=== PATIENT | female | born 1950 | race Caucasian/White ===

== ENCOUNTER → 2018-08-04 | Outpatient (CLI) | payer OTHER, MEDICARE ==
[~2018-08-04] MED LIST: BYSTOLIC10 MG PO; LISINOPRIL-HCT1 EACH PO
--- NOTE | 2018-08-04 17:04 | Diagnostic Imaging Report ---
CT CHEST WITHOUT CONTRAST HISTORY: Shortness of breath, right lower lobe pulmonary nodule COMPARISON: Images from chest radiograph June 23, 2015. TECHNIQUE: CT scan of the chest WITHOUT intravenous contrast, using standard protocol. The chest was scanned utilizing a multidetector helical scanner from the apex to the level of the adrenal glands. Coronal and sagittal reformats are provided. IV CONTRAST: None, which limits evaluation of the vascular structures, mediastinum and soft tissues. RADIATION DOSE: Total DLP: 623.49 mGy*cm Dose modulation, iterative reconstruction, and/or weight based adjustment of the mA/kV was utilized to reduce the radiation dose to as low as reasonably achievable. COMPLICATIONS: None FINDINGS: Lines/tubes: None. Lungs and Airways: Bibasilar atelectasis versus scarring. Two densely calcified right middle lobe granulomas, 7 mm and 4 mm in diameter. No airspace consolidation or edema. Pleura: The pleural spaces are clear. Heart and mediastinum: The thyroid gland is normal. The heart is within normal size limits. Dense calcification of the tricuspid valve greater than the aortic valve. Trace pericardial fluid. Abdomen: Limited nonenhanced views of the upper abdomen. Metallic clips in the right upper quadrant of the abdomen are compatible with prior cholecystectomy. Lymph nodes: No pathologically enlarged lymph node identified. Vessels: Scattered atherosclerotic vascular calcifications, including the coronary arteries. Bones: Accentuation of the thoracic kyphosis. Multilevel mild to moderate degenerative disc changes. Soft tissues: Otherwise, unremarkable. IMPRESSION: 1. Two right middle lobe calcified granulomas, surveillance follow-up is not required. 2. Coronary atherosclerosis. Signed by: Dr. Néstor Mancilla D.O., M.M.M. on 08/04/2018 5:00 PM
== END ==
LOC: CT 16:01
PROVIDERS: ATTEND Family Medicine
DX: R06.02 Shortness of breath (principal); R91.1 Solitary pulmonary nodule
CPT/HCPCS: 71250

== ENCOUNTER → 2018-08-29 | Day surgery (SDC) | payer OTHER, MEDICARE ==
[2018-08-26 17:45] LABS: BASOPHILS # (AUTO) 0.1 (0.0-0.1); BASOPHILS % 0.6 % (0.0-1.0); EOSINOPHILS # (AUTO) 0.2 (0.0-0.4); EOSINOPHILS % 2.3 % (0.0-6.0); HEMOGLOBIN 13.6 g/dL (12.0-16.0); LYMPHOCYTES # (AUTO) 2.6 (1.0-3.2); LYMPHOCYTES % 31.5 % (18.0-39.1); MEAN CORPUSCULAR HEMOGLOBIN 27.5 pg (28-32); MEAN CORPUSCULAR HGB CONC 32.4 g/dL (31-35); MONOCYTES # (AUTO) 0.8 (0.2-0.8); MONOCYTES % 8.9 % (4.4-11.3); NEUTROPHILS # (AUTO) 4.7 (2.1-6.9); NEUTROPHILS % 56.2 % (38.7-80.0); PLATELET COUNT 248 x10e3/uL (140-360); RED BLOOD COUNT 4.94 x10e6/uL (3.6-5.1); RED CELL DISTRIBUTION WIDTH 14.9 % (11.7-14.4)
[~2018-08-29] MED LIST changes: +CRESTOR5 MG PO; +FENTANYL CITRATE/PF 100MCG/2 ML INJ ONE; +MIDAZOLAM HCL 2 MG/2 ML VIAL ONE; +PANTOPRAZOLE 40 MG 10ML VIAL ONE; +PROPOFOL IV EMULSION 10 MG/ML 20 ML VIAL ONE
--- NOTE | 2018-08-29 18:16 | Operative Report ---
DATE OF PROCEDURE: August 29, 2018 REFERRING PHYSICIAN: Dr. Ernestina Medina. PROCEDURES PERFORMED 1. Esophagogastroduodenoscopy with biopsies. 2. Colonoscopy with polypectomy and biopsies. INDICATIONS FOR ESOPHAGOGASTRODUODENOSCOPY: Heartburn and indigestion. INDICATIONS FOR COLONOSCOPY: History of colon polyps, surveillance colonoscopy. MEDICATION: Patient was done under MAC. Please see anesthesiologist's note. PROCEDURE: With patient in left lateral decubitus position, a flexible fiberoptic Olympus gastroscope was introduced into the esophagus under direct visualization without any difficulty. Some erosions were noted in the distal esophagus. There was a single tongue of velvety-red mucosa extending proximally from the GE junction that was biopsied to rule out Suresh's. The scope was then advanced with ease into the stomach traversing a small hiatal hernia. Mucosa overlying the antrum and the body revealed some patchy intense erythema and moderate edema and biopsies were obtained and sent to stain for H. pylori. Pylorus was of normal contour and shape. It was intubated with ease and the scope was advanced all the way to the second portion of the duodenum. The biopsies were obtained from the proximal second portion to rule out sprue. The scope was then withdrawn back into the stomach and retroflexed and mucosa overlying the fundus and the cardia appeared to be within normal limits. The scope was then straightened out. It was subsequently withdrawn. Patient tolerated the procedure well. IMPRESSION 1. Distal erosive esophagitis. 2. Rule out Suresh's esophagus. 3. Small hiatal hernia. 4. Gastritis, biopsied. Biopsies sent to stain for Helicobacter pylori. 5. Rule out sprue. PLAN: Follow up histology. Initiate Protonix 40 mg 1 p.o. q.a a.m. a.c. Patient was then turned around. After adequate lubrication of the anal canal, a flexible fiberoptic Olympus colonoscope was inserted into the rectum with ease and advanced all the way to the cecum. It was then withdrawn slowly. Mucosa overlying the cecum and ascending colon appeared to be within normal limits. One polyp was hot biopsied from the distal transverse colon. The mucosa overlying the left colon revealed some patchy intense erythema and moderate edema and similar findings were also noted in the rectum. Random biopsies were obtained. The scope was then retroflexed into the distal rectum and small internal hemorrhoids were noted, none of which was actively bleeding. The scope was then straightened out and was subsequently withdrawn. Patient tolerated the procedure well. IMPRESSION 1. Transverse colon polyp, hot biopsied. 2. Patchy mild left-sided colitis. 3. Proctitis, mild. 4. Small internal hemorrhoids. none actively bleeding. PLAN: Follow up histology. Initiate VSL #3 one p.o. daily. Check TSH. Patient might benefit from a followup colonoscopy in 3 to 5 years. Job#: [id number] VAS cc:DR. ERNESTINA MEDINA
--- OUTSIDE RECORDS SUMMARY | 2018-09-01 14:19 | XMS REPORT ---
Author [facility] Address Unknown Phone Unavailable Care Team Providers Care Supervisor Policy Change Clerks Name Role Phone TUCKER MEDINA Unavailable Unavailable Problems This patient has no known problems. Allergies, Adverse Reactions, Alerts This patient has no known allergies or adverse reactions. Medications This patient has no known medications. Results Test Description Test Time Test Comments Text Results Atomic Results Result Comments CT CHEST WO 2018-08-04 16:51:00 [place] [address] Patient Name: LUÍS CIFUETNES MR #: [id number] : 1950 Age/Sex: 68/F Req #: [id number] Adm Physician: Ordered by: TUCKER MEDINA DO Report #: [id number] Location: CT Room/Bed: Procedure: [id number] CT/CT CHEST WO Exam Date: Exam Time: REPORT STATUS: Signed CT CHEST WITHOUT CONTRAST HISTORY: Shortness of breath, right lower lobe pulmonary nodule COMPARISON: Images from chest radiograph June 23, 2015. TECHNIQUE: CT scan of the chest WITHOUT intravenous contrast, using standard protocol. The chest was scanned utilizing a multidetector helical scanner from the apex to the level of the adrenal glands. Coronal and sagittal reformats are provided. IV CONTRAST: None, which limits evaluation of the vascular structures, mediastinum and soft tissues. RADIATION DOSE: Total DLP: 623.49 mGy*cm Dose modulation, iterative reconstruction, and/or weight based adjustment of the mA/kV was utilized to reduce the radiation dose to as low as reasonably achievable. COMPLICATIONS: None FINDINGS: Lines/tubes: None. Lungs and Airways: Bibasilar atelectasis versus scarring. Two densely calcified right middle lobe granulomas, 7 mm and 4 mm in diameter. No airspace consolidation or edema. Pleura: The pleural spaces are clear. Heart and mediastinum: The thyroid gland is normal. The heart is within normal size limits. Dense calcification of the tricuspid valve greater than the aortic valve. Trace pericardial fluid. Abdomen: Limited nonenhanced views of the upper abdomen. Metallic clips in the right upper quadrant of the abdomen are compatible with prior cholecystectomy. Lymph nodes: No patho logically enlarged lymph node identified. Vessels: Scattered atherosclerotic vascular calcifications, including the coronary arteries. Bones: Accentuation of the thoracic kyphosis. Multilevel mild to moderate degenerative disc changes. Soft tissues: Otherwise, unremarkable. IMPRESSION: 1. Two right middle lobe calcified granulomas, surveillance follow-up is not required. 2. Coronary atherosclerosis. Signed by: Dr. Fela Mancilla DCocoOCoco, M.M.M. on 08/04/2018 5:00 PM Dictated By: FELA MANCILLA DO 99 Transcribe d By: KEAGAN on 08/04/181699 COPY TO: TUCKER MEDINA DO
== END | disposition home or self-care (01) ==
LOC: OR 12:15
PROVIDERS: ATTEND Internal Medicine Gastroenterology
DX: K29.70 Gastritis, unspecified, without bleeding (principal); K63.5 Polyp of colon; K22.10 Ulcer of esophagus without bleeding; K51.50 Left sided colitis without complications; K44.9 Diaphragmatic hernia without obstruction or gangrene; K22.8 Other specified diseases of esophagus; K62.89 Other specified diseases of anus and rectum; K59.00 Constipation, unspecified; K64.8 Other hemorrhoids; I10 Essential (primary) hypertension; G47.33 Obstructive sleep apnea (adult) (pediatric); E78.00 Pure hypercholesterolemia, unspecified; Z01.810 Encounter for preprocedural cardiovascular examination; Z88.6 Allergy status to analgesic agent; Z88.0 Allergy status to penicillin; Z68.37 Body mass index [BMI] 37.0-37.9, adult; Z90.49 Acquired absence of other specified parts of digestive tract; Z96.653 Presence of artificial knee joint, bilateral; Z80.0 Family history of malignant neoplasm of digestive organs
CPT/HCPCS: 36415; 43239; 45380; 45384; 85025; 93005; J2250

== ENCOUNTER 2021-01-25 07:26 | Observation (INO) | payer OTHER, MEDICARE ==
[~2021-01-25] VITALS: Ht 167.6 cm; Wt 101.2 kg
[~2021-01-25 07:26] MED LIST changes: -FENTANYL CITRATE/PF 100MCG/2 ML INJ ONE; -MIDAZOLAM HCL 2 MG/2 ML VIAL ONE; -PANTOPRAZOLE 40 MG 10ML VIAL ONE; -PROPOFOL IV EMULSION 10 MG/ML 20 ML VIAL ONE
[2021-01-25] MEDS ORDERED: ASPIRIN 81 MG CHEW TAB PO ONE ×3 (07:30→09:00)
[2021-01-25 07:55] LABS: BASOPHILS # (AUTO) 0.1 (0.0-0.1); EOSINOPHILS # (AUTO) 0.2 (0.0-0.4); EOSINOPHILS % 3.8 % (0.0-6.0); HEMATOCRIT 40.9 % (34.2-44.1); LYMPHOCYTES # (AUTO) 1.7 (1.0-3.2); LYMPHOCYTES % 34.1 % (18.0-39.1); MEAN CORPUSCULAR HEMOGLOBIN 26.3 pg (28-32); MEAN CORPUSCULAR HGB CONC 31.8 g/dL (31-35); MEAN CORPUSCULAR VOLUME 82.6 fL (81-99); MONOCYTES # (AUTO) 0.5 (0.2-0.8); MONOCYTES % 8.9 % (4.4-11.3); NEUTROPHILS # (AUTO) 2.6 (2.1-6.9); PLATELET COUNT 246 x10e3/uL (140-360); RED BLOOD COUNT 4.95 x10e6/uL (3.6-5.1); RED CELL DISTRIBUTION WIDTH 15.1 % (11.7-14.4)
[2021-01-25] MEDS ORDERED: HYDRALAZINE HCL 20 MG/ML VIAL ONE (07:57)
[2021-01-25] MEDS ORDERED: NITROGLYCERIN 2% OINT 1 GM PKT TOP ONE (08:00)
[2021-01-25 08:10] LABS: COLOR,URINE YELLOW (YELLOW)
[2021-01-25 08:11] LABS: CLARITY,URINE CLEAR (CLEAR)
[2021-01-25 08:12] LABS: ALANINE AMINOTRANSFERASE 12 IU/L (0-55); ALBUMIN 3.8 g/dL (3.5-5.0); ALBUMIN/GLOBULIN RATIO 1.3 (0.8-2.0); ALKALINE PHOSPHATASE 86 IU/L (40-150); ANION GAP 13.2 mmol/L (8-16); BLOOD UREA NITROGEN 16 mg/dL (7-26); BUN/CREATININE RATIO 21 (6-25); CALCIUM 9.1 mg/dL (8.4-10.2); CARBON DIOXIDE 25 mmol/L (22-29); CHLORIDE 108 mmol/L (98-107); CREATINE KINASE 266 IU/L (29-168); CREATININE, SERUM 0.76 mg/dL (0.57-1.11); EST GLOMERULAR FILTRATION RATE > 60 ML/MIN (60-); GLUCOSE 109 mg/dL (74-118); POTASSIUM 4.2 mmol/L (3.5-5.1); SODIUM 142 mmol/L (136-145)
[2021-01-25 08:12] LABS: KETONES,URINE NEGATIVE (NEGATIVE); LEUKOCYTE ESTERASE ,URINE NEGATIVE (NEGATIVE); NITRITE,URINE NEGATIVE (NEGATIVE); PROTEIN,URINE DIPSTICK NEGATIVE (NEGATIVE); URINE UROBILINOGEN 0.2 mg/dL (0.2 - 1)
[2021-01-25 08:21] LABS: BACTERIA,URINE FEW /HPF; EPITHELIAL CELLS,URINE MODERATE /LPF; WBC,URINE (MAN) 0-5 /HPF (0-5)
[2021-01-25] MEDS ORDERED: SODIUM CHLORIDE 0.9% 1000ML 1,000 ML IV SCH ×2 (09:00→15:00)
[2021-01-25 11:37] VITALS: BP 143/62
[2021-01-25] MEDS ORDERED: CLOPIDOGREL BISULFATE 75 MG TAB PO ONE (12:00)
[2021-01-25 12:08] LABS: CHOL/HDL RATIO 3.3 (3.0-3.6)
[2021-01-25 12:22] LABS: CREATINE KINASE MB 7.6 ng/mL (0-5.0)
[2021-01-25 12:28] LABS: THYROID STIMULATING HORMONE 1.65 uIU/mL (0.350-4.940)
[2021-01-25] MEDS ORDERED: LIDOCAINE HCL 2% LOCAL 20 ML VIAL ONE (12:59)
[2021-01-25] MEDS ORDERED: SODIUM CHLORIDE 0.9% 1000ML 0 ML ONE (12:59)
[2021-01-25] MEDS ORDERED: IOPAMIDOL 370 MG/ML 200 ML INFUS..BTL INJ ONE (12:59)
[2021-01-25] MEDS ORDERED: HEPARIN SOD/SOD CHLORIDE 2,000 ML ONE (12:59)
[2021-01-25] MEDS ORDERED: MIDAZOLAM HCL 2 MG/2 ML VIAL ONE (12:59)
[2021-01-25] MEDS ORDERED: FENTANYL CITRATE/PF 100MCG/2 ML INJ ONE (12:59)
[2021-01-25 13:00] VITALS: BP 143/62
[2021-01-25] MEDS ORDERED: METOCLOPRAMIDE HCL 10 MG/2ML VIAL ONE (14:09)
[2021-01-25] MEDS ORDERED: CLONIDINE HCL 0.1 MG TAB PO PRN (15:00)
[2021-01-25] MEDS ORDERED: ONDANSETRON HCL INJ 2MG/ML 2ML 2 MG/ML VIAL IV PRN (15:00)
[2021-01-25 15:47] VITALS: BP 145/59
[2021-01-25] MEDS ORDERED: PANTOPRAZOLE SO40 MG PO (18:25)
[2021-01-25] MEDS ORDERED: PROBIOTIC & AC1 EACH PO (18:25)
[2021-01-25] MEDS ORDERED: THYROXINE (18:25)
[2021-01-25 20:00] VITALS: BP 172/59
[2021-01-25 20:05] LABS: CREATINE KINASE MB 8.4 ng/mL (0-5.0)
[2021-01-25 21:00] VITALS: BP 172/59
[2021-01-26] VITALS: BP 149/69
[2021-01-26 04:00] VITALS: BP 132/63
[2021-01-26 06:11] LABS: BASOPHILS # (AUTO) 0.1 (0.0-0.1); BASOPHILS % 0.9 % (0.0-1.0); EOSINOPHILS # (AUTO) 0.3 (0.0-0.4); EOSINOPHILS % 4.2 % (0.0-6.0); HEMOGLOBIN 13.5 g/dL (12.0-16.0); LYMPHOCYTES # (AUTO) 2.2 (1.0-3.2); LYMPHOCYTES % 32.4 % (18.0-39.1); MEAN CORPUSCULAR HEMOGLOBIN 26.9 pg (28-32); MEAN CORPUSCULAR HGB CONC 32.1 g/dL (31-35); MEAN CORPUSCULAR VOLUME 83.8 fL (81-99); MONOCYTES # (AUTO) 0.5 (0.2-0.8); MONOCYTES % 7.1 % (4.4-11.3); NEUTROPHILS # (AUTO) 3.7 (2.1-6.9); NEUTROPHILS % 55.3 % (38.7-80.0); PLATELET COUNT 249 x10e3/uL (140-360); RED BLOOD COUNT 5.01 x10e6/uL (3.6-5.1)
[2021-01-26 07:00] LABS: ALANINE AMINOTRANSFERASE 13 IU/L (0-55); ALBUMIN 3.7 g/dL (3.5-5.0); ALBUMIN/GLOBULIN RATIO 1.1 (0.8-2.0); ALKALINE PHOSPHATASE 83 IU/L (40-150); ANION GAP 14.1 mmol/L (8-16); BLOOD UREA NITROGEN 12 mg/dL (7-26); BUN/CREATININE RATIO 17 (6-25); CALCIUM 8.5 mg/dL (8.4-10.2); CARBON DIOXIDE 23 mmol/L (22-29); CHLORIDE 108 mmol/L (98-107); CREATININE, SERUM 0.71 mg/dL (0.57-1.11); EST GLOMERULAR FILTRATION RATE > 60 ML/MIN (60-); GLUCOSE 101 mg/dL (74-118); POTASSIUM 4.1 mmol/L (3.5-5.1); SODIUM 141 mmol/L (136-145)
[2021-01-26 07:15] LABS: CHOL/HDL RATIO 3.4 (3.0-3.6)
[2021-01-26 08:05] VITALS: BP 170/63
[2021-01-26 08:31] VITALS: BP 170/63
[2021-01-26] MEDS ORDERED: NEBIVOLOL 10 MG TAB PO SCH (09:00)
[2021-01-26] MEDS ORDERED: PANTOPRAZOLE SOD 40 MG TABEC PO SCH (09:00)
== END 2021-01-26 10:00 | disposition home or self-care (01) ==
LOC: ER 07:41 → ERHOLD 08:56 → MED/SURG2 11:12
PROVIDERS: ADMIT Family Medicine; ATTEND Family Medicine
DX: I25.110 Atherosclerotic heart disease of native coronary artery with unstable angina pectoris (principal); E66.01 Morbid (severe) obesity due to excess calories; Z68.36 Body mass index [BMI] 36.0-36.9, adult; Z20.822 Contact with and (suspected) exposure to COVID-19; Z01.818 Encounter for other preprocedural examination; G47.33 Obstructive sleep apnea (adult) (pediatric); E78.5 Hyperlipidemia, unspecified; I10 Essential (primary) hypertension; E78.00 Pure hypercholesterolemia, unspecified; I35.1 Nonrheumatic aortic (valve) insufficiency; G47.30 Sleep apnea, unspecified; Z82.49 Family history of ischemic heart disease and other diseases of the circulatory system
CPT/HCPCS: 36415 ×2; 71045; 75625 ×2; 76937 ×2; 80053 ×2; 80061 ×2; 81001; 82550; 82553; 83880; 84443; 84484; 85025 ×2; 93005; 93458; 99284; C1769; C1887; G0378 ×2; J2001; J2250; J2765; J3010; J7030; Q9967; S0164; U0002; 99152; 99153; J0360

== ENCOUNTER → 2022-04-26 | Outpatient (CLI) | payer MEDICARE ==
[~2022-04-26] MED LIST changes: +PANTOPRAZOLE SO40 MG PO; +PROBIOTIC & AC1 EACH PO; +THYROXINE
== END ==
LOC: MRI 12:28
PROVIDERS: ATTEND Family Medicine
DX: R42 Dizziness and giddiness (principal)
CPT/HCPCS: 70551